=== PATIENT | female | born 1955 | race Caucasian/White ===

== ENCOUNTER 2018-09-17 14:02 | Emergency (ER) | payer BC, OTHER ==
[2018-09-17 15:19] LABS: #Eosinphils 0.3 thou/uL (0.0-0.7); #Lymphocytes 0.8 thou/uL (1.20-3.40); #Monocytes 0.3 thou/uL (0.11-0.59); #Neutrophils 4.8 thou/uL (1.40-6.50); %Basophils 0.5 % (0.0-1.0); %Eosinophils 5.4 % (0.0-10.0); %Monocytes 5.2 % (0.0-10.0); Hemoglobin 12.2 g/dL (12.0-16.0); Mean Corpuscular Hemoglobin 26.9 pg (27.0-31.0); Mean Corpuscular Volume 84.1 fL (78.0-98.0); Platelet Count 402 thou/uL (130-400); RBC Distribution Width 14.4 % (11.5-14.5); Red Blood Cell (RBC) Count 4.53 mill/uL (4.20-5.40); White Blood Cell (WBC) Count 6.3 thou/uL (4.8-10.8)
[2018-09-17] MEDS ORDERED: Morphine 4 MG/ML VIAL ONE (15:22)
[2018-09-17] MEDS ORDERED: Ondansetron PF 4 MG/2 ML Vial ONE (15:23)
--- NOTE | 2018-09-17 15:48 | RAD ---
RIGHT KNEE 4 VIEWS: HISTORY: Pain. COMPARISON: None. FINDINGS: No significant joint effusion. There is infrapatellar soft tissue swelling. There is tricompartmental osteophyte formation/mild. IMPRESSION: Infrapatellar soft tissue swelling can be sequelae of a contusion. No acute displaced fracture or ma lalignment. POS: [facility]
[2018-09-17 15:49] LABS: ALT (SGPT) 23 U/L (8-55); AST (SGOT) 14 U/L (5-34); Albumin 4.1 g/dL (3.4-4.8); Alkaline Phosphatase 119 U/L (40-150); Anion Gap 17 mmol/L (10-20); BUN (Urea Nitrogen) 21 mg/dL (9.8-20.1); Bilirubin, Total 0.4 mg/dL (0.2-1.2); CK (CPK) 75 U/L (29-168); Calc. Creatinine Clearance 0 mL/min (70-130); Calcium 9.2 mg/dL (7.8-10.44); Carbon Dioxide 24 mmol/L (23-31); Chloride 102 mmol/L (98-107); Estimated GFR-MDRD 31; Globulin 2.9 g/dL (2.4-3.5); Glucose 188 mg/dL (80-115); Potassium 4.5 mmol/L (3.5-5.1); Sodium 138 mmol/L (136-145)
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
--- NOTE | 2018-09-17 15:49 | RAD ---
CHEST ONE VIEW: HISTORY: Emergency exam. Chest pain. COMPARISON: None. FINDINGS: New from the comparison examination is some pleural thickening and possibly some fluid along the righ t lateral aspect of the upper lobe. There is increased density along the middle mediastinum. No pne umothorax. IMPRESSION: 1. Increased density along the middle mediastinum, likely a sliding hiatal hernia. 2. Increased density along the right lateral pleural space, along the upper lobe. This may reflect increased pleural fat, although it is new, and a layering effusion is possible. Two view is recommen ded. POS: [facility]
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
--- NOTE | 2018-09-22 14:06 | EKG ---
Test Reason : EMERGENCY EXAM Blood Pressure : / mmHG Vent. Rate : 084 BPM Atrial Rate : 084 BPM P-R Int : 150 ms QRS Dur : 092 ms QT Int : 408 ms P-R-T Axes : 035 001 049 degrees QTc Int : 482 ms Normal sinus rhythm Minimal voltage criteria for LVH, may be normal variant Borderline ECG Confirmed by MATILDA Allen, TELLY ([id number]), primer expeditor and drier ROBIN COLLAZO ([id number]) on 09/22/2018 2:04:56 PM Referred By: IESHA Confirmed By:TELLY GREY M.D.
== END 2018-09-17 17:10 | disposition home or self-care (01) ==
LOC: ERS 14:02
DX: S05.12XA Contusion of eyeball and orbital tissues, left eye, initial encounter (principal); F07.81 Postconcussional syndrome; I10 Essential (primary) hypertension; E78.5 Hyperlipidemia, unspecified; M19.90 Unspecified osteoarthritis, unspecified site; E66.9 Obesity, unspecified; J44.9 Chronic obstructive pulmonary disease, unspecified; Z79.4 Long term (current) use of insulin; Z79.899 Other long term (current) drug therapy; V43.92XA Unspecified car occupant injured in collision with other type car in traffic accident, initial encounter
CPT/HCPCS: 70450; 70486; 71045; 72100; 72125; 72170; 80053; 82550; 84484; 85025; 93005; 94760; 96360; J2270; J2405

== ENCOUNTER 2018-09-20 14:50 | Emergency (ER) | payer BC ==
[2018-09-20 15:51] LABS: #Eosinphils 0.3 thou/uL (0.0-0.7); #Lymphocytes 0.9 thou/uL (1.20-3.40); #Monocytes 0.5 thou/uL (0.11-0.59); #Neutrophils 2.6 thou/uL (1.40-6.50); %Basophils 0.8 % (0.0-1.0); %Lymphocytes 21.4 % (21.0-51.0); %Monocytes 10.4 % (0.0-10.0); %Neutrophils 60.4 % (42.0-75.0); Hemoglobin 10.8 g/dL (12.0-16.0); Mean Corpuscular HGB CONC 31.9 g/dL (32.0-36.0); Mean Corpuscular Hemoglobin 27.5 pg (27.0-31.0); Mean Corpuscular Volume 86.3 fL (78.0-98.0); Platelet Count 309 thou/uL (130-400); RBC Distribution Width 14.4 % (11.5-14.5); Red Blood Cell (RBC) Count 3.93 mill/uL (4.20-5.40); White Blood Cell (WBC) Count 4.3 thou/uL (4.8-10.8)
[2018-09-20 16:21] LABS: Bilirubin Small (Negative); Blood, Urine Negative (Negative); Clarity CLEAR (Clear); Glucose, Urine (Dipstick) Negative (Negative); Leukocyte Trace (Negative); Nitrite Negative (Negative); Protein, Urine (Dipstick) 30 mg/dL (Neg-Trace); Specific Gravity, Urine 1.034 (1.002-1.036); Urobilinogen 0.2 mg/dL (0.2-1.0); pH, Urine 5.5 (5.0-9.0)
[2018-09-20 16:23] LABS: Bacteria/HPF None Seen HPF (None Seen)
[2018-09-20 16:25] LABS: Pathc Cast-AUWi Flag 7.41 (0-2.49)
[2018-09-20 16:41] LABS: Other Casts/LPF None Seen LPF (0-3 Hyaline)
[2018-09-20 16:48] LABS: ALT (SGPT) 20 U/L (8-55); AST (SGOT) 13 U/L (5-34); Albumin 3.8 g/dL (3.4-4.8); Alkaline Phosphatase 118 U/L (40-150); Anion Gap 14 mmol/L (10-20); BUN (Urea Nitrogen) 26 mg/dL (9.8-20.1); Bilirubin, Total 0.3 mg/dL (0.2-1.2); Calc. Creatinine Clearance 0 mL/min (70-130); Calcium 8.9 mg/dL (7.8-10.44); Carbon Dioxide 25 mmol/L (23-31); Chloride 101 mmol/L (98-107); Estimated GFR-MDRD 41; Globulin 2.5 g/dL (2.4-3.5); Glucose 223 mg/dL (80-115); Potassium 4.2 mmol/L (3.5-5.1); Protein, Total 6.3 g/dL (6.0-8.3); Sodium 136 mmol/L (136-145)
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
== END 2018-09-20 18:02 | disposition home or self-care (01) ==
LOC: ERS 14:50
DX: M54.5 Low back pain (principal); R16.1 Splenomegaly, not elsewhere classified; D64.9 Anemia, unspecified; E11.9 Type 2 diabetes mellitus without complications; E03.9 Hypothyroidism, unspecified; E78.5 Hyperlipidemia, unspecified; E66.9 Obesity, unspecified; I10 Essential (primary) hypertension; M79.7 Fibromyalgia; M19.90 Unspecified osteoarthritis, unspecified site; J44.9 Chronic obstructive pulmonary disease, unspecified; Z79.4 Long term (current) use of insulin; Z79.899 Other long term (current) drug therapy
CPT/HCPCS: 36415; 74176; 80053; 81003; 81015; 83690; 85025; 96360

== ENCOUNTER 2022-06-17 12:50 | Outpatient (CLI) | payer MEDICARE | END 2022-06-17 12:51 | disposition home or self-care (01) | LOC: RAD 12:50 | PROVIDERS: ATTEND Family Medicine | DX: M25.562 Pain in left knee (principal); M17.12 Unilateral primary osteoarthritis, left knee ==

== ENCOUNTER 2024-03-20 12:50 | Outpatient (CLI) | payer MEDICARE | END 2024-03-20 12:51 | disposition home or self-care (01) | LOC: BICMAMMO 12:50 | PROVIDERS: ATTEND Student in an Organized Health Care Education/Training Program | DX: Z12.31 Encounter for screening mammogram for malignant neoplasm of breast (principal) | CPT/HCPCS: 77063; 77067 ==